=== PATIENT | male | born 1985 | race Caucasian/White ===

== ENCOUNTER 2020-07-30 14:27 | Emergency (ER) | payer OTHER ==
[~2020-07-30] VITALS: Ht 180.3 cm; Wt 91.6 kg
[2020-07-30] MEDS ORDERED: PROAIR HFA8.5 GM INH (14:37)
[2020-07-30] MEDS ORDERED: ALLEGRA ALLERG180 MG PO (14:38)
[2020-07-30] MEDS ORDERED: NORCO 5-325 TA1 EAC2 PO (16:03)
[2020-07-30] MEDS ORDERED: MEDROLDOSEPACK PO (16:03)
[2020-07-30] MEDS ORDERED: FLEXERIL PO (16:03)
[2020-07-30 16:27] VITALS: BP 126/98
== END 2020-07-30 16:28 | disposition home or self-care (01) ==
LOC: M.ERS 14:27
DX: M25.511 Pain in right shoulder (principal); M79.18 Myalgia, other site; J45.909 Unspecified asthma, uncomplicated; Z88.6 Allergy status to analgesic agent; Z88.0 Allergy status to penicillin; Z88.5 Allergy status to narcotic agent; Z79.899 Other long term (current) drug therapy

== ENCOUNTER 2020-08-06 01:08 | Emergency (ER) | payer OTHER ==
[~2020-08-06] VITALS: Ht 180.3 cm; Wt 93.0 kg
[~2020-08-06 01:08] MED LIST: ALLEGRA ALLERG180 MG PO; FLEXERIL PO; MEDROLDOSEPACK PO; NORCO 5-325 TA1 EAC2 PO; PROAIR HFA8.5 GM INH
[2020-08-06 01:15] VITALS: BP 143/98
[2020-08-06] MEDS ORDERED: FLEXERIL PO (01:38)
[2020-08-06] MEDS ORDERED: IBUPROFEN 800800 MG PO (01:38)
== END 2020-08-06 01:47 | disposition home or self-care (01) ==
LOC: M.ERS 01:08
DX: S16.1XXA Strain of muscle, fascia and tendon at neck level, initial encounter (principal); J45.909 Unspecified asthma, uncomplicated; Z88.0 Allergy status to penicillin; Z88.6 Allergy status to analgesic agent; X58.XXXA Exposure to other specified factors, initial encounter; Y93.89 Activity, other specified; Y92.89 Other specified places as the place of occurrence of the external cause; Y99.8 Other external cause status